=== PATIENT | female | born 1990 | race Asian ===

== ENCOUNTER 2019-12-03 15:33 | Inpatient (IN) | payer OTHER ==
[2019-12-03] MEDS ORDERED: Metoclopramide IV* 5 MG/ML 2 ML VIAL IV SLOW PU ONE (18:02)
[2019-12-03] MEDS ORDERED: Famotidine IV* 10 MG/ML 2 ML (20 mg) IV ONE (18:02)
[2019-12-03] MEDS ORDERED: Buffered Lidocaine 1% SYRIN* 1 ML/SYRINGE INTRADERM ONE ×2 (18:02→18:41)
[2019-12-03 18:41] LABS: ABS Eosinophils 0.1 10^3/ul (0-0.6); ABS Monocytes 0.6 10^3/ul (0-0.8); ABS Neutrophils 6.3 10^3/ul (1.5-7.7); Eosinophil % 1.2 %; Hematocrit 36 % (35-47); Hemoglobin 11.9 g/dL (12.0-16.0); Lymphocyte % 21.8 %; Mean Corpuscular HGB Conc 33 g/dL (31-36); Mean Corpuscular Hemoglobin 29 pg (27-31); Mean Corpuscular Volume 86 fL (80-97); Mean Platelet Volume 10.8 fL (7.4-10.4); Platelet Count 281 10^3/uL (150-450); Red Blood Count 4.19 10^6 /uL (3.70-4.87); Red Cell Distribution Width 14 % (10-15); White Blood Count 9.1 10^3/uL (3.5-10.8)
[2019-12-03] MEDS ORDERED: ceFOXitin 2 GM IVPREMIX* 2 GM/50 ML BAG IVPB ONE (18:41)
[2019-12-03] MEDS ORDERED: Lactated Ringers 1000 ML Bag* 1,000 ML IV ONE (18:41)
--- NOTE | 2019-12-03 18:50 | HP ---
General Information - Reason for Visit Patient presents with complaints of vaginal leakage of fluid. - General Information Maternal Age: 29 Grav: 2 Para: 1 SAB: 0 IEA: 0 Estimated Due Date: 12/11/19 Determined By: LMP Gestational Age in Weeks/Days: 38 6/7 Maternal Blood Type and Rh: A Positive - Results this Serology/RPR Result: Non-Reactive Rubella Result: Immune HBsAg Result: Negative HIV Result: Negative GBS Culture Result: Negative Past Medical History Delivery History: Hx C/Section, See Records Pertinent Past Medical History: See Records Pertinent Past Surgical History: See Records Pertinent Family History: See Records - Antepartal Records Antepartal Records: Reviewed, Complicated by: - Prior Section Review of Systems Constitutional: Comfortable CV Complaint: No Respiratory: Shortness of Breath: No Gastrointestinal: No Nausea/Vomiting, Normal Bowel Movement Genitourinary: Leaking Fluid - ROM plus positive, No Dysuria, No Bleeding Musculoskeletal: No Complaint, No Epigastric Pain Neurological: No Headache, No Visual Changes Movement: Normal Exam Temp 98.6 BP 111/72 P 84 RR 18 POx 96% RA Lab Values - Entire Visit: Laboratory Tests 12/03/19 12/03/19 16:10 17:35 WBC 9.1 RBC 4.19 Hgb 11.9 L Hct 36 MCV 86 MCH 29 MCHC 33 RDW 14 Plt Count 281 MPV 10.8 H Neut % (Auto) 69.5 Lymph % (Auto) 21.8 Bee % (Auto) 7.1 Eos % (Auto) 1.2 Baso % (Auto) 0.4 Absolute Neuts (auto) 6.3 Absolute Lymphs (auto) 2.0 Absolute Monos (auto) 0.6 Absolute Eos (auto) 0.1 Absolute Basos (auto) 0.0 Absolute Nucleated RBC 0.0 Nucleated RBC % 0.0 Vag Amniotic Fld Detect Positive - Measurements Height: 5 ft 3.39 in Weight: 145 lb 8.081 oz Weight in lbs: [phone] Body Mass Index (BMI): 25.4 Pre- Weight: 119 lb 0.794 oz Weight Gained This : 26.455 lbs and 0.007 ozs - Exam Breast: Breast Exam Deferred CVA: No CVA Tenderness Extremities: No Edema Heart: Normal Rhythm/Heart Sounds HEENT: No Significant Findings Lungs: Clear Bilaterally Rectal: Rectal Exam Deferred Reflexes: DTR 2+ Thyroid: No Thyromegaly - Abdominal Exam Abdomen Exam: Non-Tender, Fundal Height Consistent with Dates - Ultrasound/Biophysical Profile Ultrasound Status: Not Done Biophysical Profile: Normal Reactive NST Targeted Exam Findings See L&D Outpatient Visit Provider Note for Findings: N/A Cervical Exam: 1cm Effacement: 80% Station: -1 Presenting Part: Vertex Membrane Status: SROM Amniotic Fluid Evaluation: Positive ROM Plus EFM Findings - External Monitor Findings Baseline Heart Rate: 140 External Monitor Findings: Accelerations Present, No Pattern of Variable or Late Decelerations Contractions: Irregular, Mild Assessment/Plan - Assessment Term with SROM, prior section, declined . - Obstetrical Risk Factors Obstetrical Risk Factors: Previous C/Section in Labor - Plan Plan: IV Hydration, Antibiotic Prophylaxis, C/S Delivery - Date/Time of Admission Date of Admission: 12/03/19 Time of Admission: 18:00
[2019-12-03] MEDS ORDERED: Lactated Ringers 1000 ML Bag* 1,000 ML IV SCH ×2 (19:00)
[2019-12-03 19:05] LABS: Urine Benzodiazepine Screen None Detected (None Detect); Urine Opiates Screen None Detected (None Detect)
[2019-12-03] MEDS ORDERED: PROCHLORPERAZINE INJ 5 MG/ML 2 ML VIAL IV PRN (20:07)
[2019-12-03] MEDS ORDERED: Ondansetron INJ* 2 MG/ML VIAL IV PRN (20:07)
[2019-12-03] MEDS ORDERED: Scopolamine 1.5 mg* PATCH TRANSDERM PRN (20:07)
[2019-12-03] MEDS ORDERED: Nalbuphine* 10 MG/ML 1 ML VIAL IV PRN (20:07)
[2019-12-03] MEDS ORDERED: diPHENhydraMINE IV* 50 MG/ML 1 ml VIAL (BENADRYL) IV PRN (20:07)
[2019-12-03] MEDS ORDERED: Naloxone* 0.4 MG/ML 1 ML VIAL IV PRN ×2 (20:07→20:12)
[2019-12-03] MEDS ORDERED: DiMENhydriNATE IV* 50 MG/ML VIAL IV PUSH PRN (20:07)
[2019-12-03] MEDS ORDERED: Naloxone* 2 MG in NS 0.9% 250 ML* 250 ML IV PRN (20:07)
[2019-12-03] MEDS ORDERED: oxyCODONE/Acetamin 5/325 MG* TAB PO PRN (20:07)
[2019-12-03] MEDS ORDERED: fentaNYL* 50 MCG/ML 2 ML VIAL (100 MCG VIAL) IV PRN (20:12)
[2019-12-04] MEDS: Ketorolac INJ* 30 MG/ML 1 ML VIAL IV PRN ×3 (04:35→18:14)
--- NOTE | 2019-12-04 08:38 | OP ---
CC: Dr. Fletcher * DATE OF OPERATION: 12/03/19 - ROOM #103 DATE OF : 86 SURGEON: Charles Hernandez MD HOTEL YARDPERSON: Dr. Fletcher ANESTHESIA: Spinal. PRE-OP DIAGNOSES: Intrauterine at 38 weeks with spontaneous rupture of membranes, prior section, declined vaginal after . POST-OP DIAGNOSES: Intrauterine at 38 weeks with spontaneous rupture of membranes, prior section, declined vaginal after . OPERATIVE PROCEDURE: Repeat low transverse section with delivery of the head with vacuum assistance. ESTIMATED BLOOD LOSS: 600 cc. SPECIMEN SENT TO PATHOLOGY: Cord gas and cord blood. FLUIDS: She received 2 L of IV crystalloid fluid. URINE OUTPUT: Clear. FINDINGS: Delivery of a female with a nuchal cord x3 with clear fluid with Apgars of 6 and 9, weighing 6 pounds 10 ounces. The uterus was within normal limits. The adnexa bilaterally ovarian tubes were within normal limits. The bowel and bladder were also normal. There were no complications. DESCRIPTION OF PROCEDURE: The patient was taken to the operating room where she was identified. She was placed on the operating table where a spinal anesthetic was obtained without difficulty. She was then placed in the supine position with a leftward tilt, prepped and draped in normal sterile fashion. A Pfannenstiel skin incision was made with a knife and carried through to underlying layer of fascia. The fascia was nicked in the midline, extended laterally with curved De Anda scissors. The fascia was then grasped superiorly and inferiorly with Matt clamps, dissected off sharply from the rectus muscle. The rectus muscle was then in midline bluntly. The peritoneum was identified, grasped with pickups, entered sharply with Metzenbaum scissors, extended superiorly and inferiorly sharply. A bladder blade was inserted into the patient's abdomen. A bladder flap was created using Metzenbaum scissors over which the bladder blade was then reinserted. A low transverse uterine incision was made with a knife, extended laterally with bandage scissors. Amniotic sac was ruptured. The infant's head was then grasped, it was difficult to deliver the head due to prior adhesions surrounding the incision, therefore a vacuum was attached to the head and with vacuum assistance and extending the incision, 's head was then delivered. Nuchal cord x3 was reduced. The vacuum was removed from the 's head head. The rest of the 's body was then delivered. The cord was clamped and cut and the infant was handed off to awaiting brooch and bracelet maker. Cord bloods were obtained. The placenta was removed manually. The uterus was then exteriorized, cleared of all clot and debris using moist laparotomy sponges. The uterine incision was then closed using 0 Polysorb suture in a running lock fashion with a second imbricating layer of 0 Polysorb suture with good hemostasis noted. The uterus was then returned to the patient's abdomen. The gutters were then cleared of all clot and debris using moist laparotomy sponges. All the sponges and instruments were removed from the patient's abdomen. The peritoneum was then closed using 3-0 Polysorb suture in a running fashion. The fascia was closed using 0 Polysorb suture in a running fashion and the skin was closed with kyle. The patient tolerated the procedure well. Sponge, lap, and needle counts were correct x2. She was then transferred to the recovery room area in stable condition. [id number]/[facility] #: [id number] EILEEN
[2019-12-04 09:34] LABS: ABS Neutrophils 15.8 10^3/ul (1.5-7.7); Hematocrit 33 % (35-47); Hemoglobin 10.9 g/dL (12.0-16.0); Lymphocyte % 10.6 %; Mean Corpuscular HGB Conc 33 g/dL (31-36); Mean Corpuscular Hemoglobin 28 pg (27-31); Mean Corpuscular Volume 85 fL (80-97); Platelet Count 248 10^3/uL (150-450); Red Blood Count 3.89 10^6 /uL (3.70-4.87); Red Cell Distribution Width 14 % (10-15); White Blood Count 18.8 10^3/uL (3.5-10.8)
[2019-12-04] MEDS ORDERED: Glycerin ADULT SUPP PR PRN (10:23)
[2019-12-04] MEDS ORDERED: Witch Hazel PAD* JAR TOPICAL PRN (10:23)
[2019-12-04] MEDS ORDERED: Dibucaine 1% 28.35 GM TUBE PR PRN (10:23)
[2019-12-04] MEDS: Simethicone TAB* 80 MG TAB.CHEW PO SCH ×3 (10:52→21:01)
[2019-12-04] MEDS: Docusate CAP* 100 MG PO SCH ×3 (10:52→21:01)
[2019-12-04] MEDS ORDERED: Lactated Ringers 1000 ML Bag* 1,000 ML IV SCH (11:00)
[2019-12-04] MEDS ORDERED: oxyCODONE TAB* 5 MG TAB PO PRN (11:46)
[2019-12-04] MEDS: oxyCODONE TAB* 5 MG TAB PO PRN (21:02)
[2019-12-05] MEDS: Ibuprofen TAB* 600 MG PO PRN ×4 (00:28→20:15)
[2019-12-05] MEDS: oxyCODONE TAB* 5 MG TAB PO PRN ×3 (00:28→15:41)
[2019-12-05 05:47] LABS: ABS Eosinophils 0.3 10^3/ul (0-0.6); ABS Lymphocytes 2.9 10^3/ul (1.0-4.8); ABS Monocytes 0.9 10^3/ul (0-0.8); ABS Neutrophils 7.7 10^3/ul (1.5-7.7); Eosinophil % 2.7 %; Hematocrit 30 % (35-47); Hemoglobin 9.9 g/dL (12.0-16.0); Lymphocyte % 24.3 %; Mean Corpuscular HGB Conc 33 g/dL (31-36); Mean Corpuscular Hemoglobin 28 pg (27-31); Mean Corpuscular Volume 86 fL (80-97); Mean Platelet Volume 10.5 fL (7.4-10.4); Nucleated Red Blood Cells % 0.1; Platelet Count 225 10^3/uL (150-450); Red Blood Count 3.49 10^6 /uL (3.70-4.87); Red Cell Distribution Width 14 % (10-15); White Blood Count 11.9 10^3/uL (3.5-10.8)
[2019-12-05] MEDS: Docusate CAP* 100 MG PO SCH ×3 (08:41→20:15)
[2019-12-05] MEDS: Simethicone TAB* 80 MG TAB.CHEW PO SCH ×4 (08:41→20:15)
[2019-12-05] MEDS ORDERED: Ferrous Gluconate TAB* 324 MG TAB PO SCH (09:00)
[2019-12-05] MEDS ORDERED: Acetaminophen TAB* 325 MG PO PRN (10:23)
[2019-12-05] MEDS: ceFAZolin 2 GM PREMIX in ORs 2 GM/50 ML BAG IVPB SCH ×2 (11:49→20:00)
[2019-12-06] MEDS: ceFAZolin 2 GM PREMIX in ORs 2 GM/50 ML BAG IVPB SCH ×2 (04:06→13:07)
[2019-12-06] MEDS: Ibuprofen TAB* 600 MG PO PRN ×2 (04:06→13:31)
[2019-12-06] MEDS: Docusate CAP* 100 MG PO SCH ×2 (08:44→13:31)
[2019-12-06] MEDS: Simethicone TAB* 80 MG TAB.CHEW PO SCH ×2 (08:44→13:31)
[2019-12-06] MEDS: oxyCODONE TAB* 5 MG TAB PO PRN (09:07)
[2019-12-06 09:51] VITALS: BP 114/78
[2019-12-06] MEDS ORDERED: Scopolamine PATCH Remove* 1 NOTE MISC PATCH OFF PRN (20:09)
== END 2019-12-06 14:38 | disposition home or self-care (01) | DRG 788 ==
LOC: MCHOBOUT 15:33 → MCHOB 16:53
PROVIDERS: ADMIT Obstetrics & Gynecology; ATTEND Obstetrics & Gynecology
PROC: 10D00Z1 Extraction of Products of Conception, Low, Open Approach (ICD-10-PCS; principal; 2019-12-03 19:42)
DX: O34.211 Maternal care for low transverse scar from previous cesarean delivery (principal); O69.81X0 Labor and delivery complicated by cord around neck, without compression, not applicable or unspecified; Z3A.39 39 weeks gestation of pregnancy; Z37.0 Single live birth
CPT/HCPCS: 36415; 80307; 84112; 85025; 86850; 86900; 86901; A9270-GY; G0480; J0690; J0694; J1885; J2765